=== PATIENT | male | born 1980 | race Caucasian/White ===

== ENCOUNTER 2022-03-04 17:19 | Observation (INO) ==
--- NOTE | 2022-03-04 17:50 | Emergency Department Note ---
History of Present Illness General Chief complaint: Penis Pain Stated complaint: PENIS PAIN Time Seen by Provider: 03/04/22 17:40 History of Present Illness Maximum Pain Intensity: 10 This is an otherwise healthy 42-year-old male that presents to the emergency department via private vehicle accompanied by female with complaints of "penis pain". The patient notes that for the past month or so he felt a few small bumps to the foreskin of the penis. He notes that he is uncircumcised. He has been trying to practice good hygiene and keep the area cleansed. He then notes that over the past few days, starting on Saturday he has been unable to retract the foreskin. He is concerned that he may have a phimosis. The patient denies ever having this previously. Patient denies any known history of diabetes. Patient denies any fevers or chills. He denies any trouble urinating. No known trauma or injury. Patient does note some referred discomfort to the suprapubic region. Home Medications Medication Instructions Recorded Confirmed Type None (Patient States No Home Meds) #0 01/18/08 History Allergies Allergy/AdvReac Type Severity Reaction Status Date / Time No Known Allergies Allergy Unknown Verified 01/18/08 20:15 Past Med/Surg History Medical History No pertinent past medical history Surgical History History of major orthopedic surgery Left clavicle surgery Social History Smoking Status: Current every day smoker Tobacco Type: Cigarettes Cigarettes Per Day: 1/2 PPD; Second Hand Exposure: No; Do You Dip or Chew Tobacco: No; Tobacco Cessation Education Requested by Patient: No Hx Alcohol Use: Yes Alcohol type: beer Hx Substance Use: Yes Last Used Substance: Days (ago) Substance Use Type Other:: medical marijuana card Preferred Language: Hungarian Communication Ability: Effective Music Educator Required: No Beliefs That Will Affect Care: None Current Living Situation: Family Current Living Situation Comment: lives in house with and 3 children Other Information That Helps Us Care for You: No Feels Safe at Home: Yes Safety Concerns: Feels Safe At This Time Assistive Devices: Glasses Review of Systems A total of 10 systems reviewed and were otherwise negative Physical Exam Vital Signs Vital Signs - 24 hr 03/04/22 17:21 03/04/22 22:05 Temperature 36.6 C Temperature Source Temporal Artery Scan Pulse Rate 74 Pulse Rate [Finger] 87 Respiratory Rate 16 19 Respiratory Effort / Characteristics Non-Labored Blood Pressure 148/85 H Blood Pressure [Right Arm] 138/81 Blood Pressure Mean 106 Blood Pressure Mean [Right Arm] 100 Pulse Oximetry 94 98 Oxygen Delivery Method Room Air Room Air Sepsis Recent Fever Within 48 Hours No Sepsis New/Unexplained Change in Mental Status N/A Sepsis Action Taken by Nursing No Action Required VITAL SIGNS - Vital signs and nursing notes were reviewed. Stable and afebrile. GENERAL -42-year-old male appearing his stated age who is in no acute distress. Communicates well with provider and answers questions appropriately. SKIN - Without rashes. No meningeal or petechial rash. Please refer to the portion of this examination regarding genitalia. NECK - No nuchal rigidity. LUNGS - Chest wall symmetric without accessory muscle use, intercostals retractions, or central cyanosis. Normal vesicular breath sounds CTA B/L. No wheezes, rales, or rhonchi appreciated. CARDIAC - RRR with S1/S2. No murmur, rubs, or gallops appreciated. ABDOMEN - Abdominal contour normal without pulsations or visible masses. BS normoactive all four quadrants. No tenderness, palpable masses, hepatosplenomegaly, or ascites noted. : Consent was obtained. Genitourinary examination performed. There is what appears to be irritation and edema characterized by erythema and some mild whit nella drainage/discharge present to the glans region. There is phimosis noted as the foreskin is unable to be retracted. No lacerations. No crepitus. PSYCH - A&O, and cooperates fully with examiner. Pt is very pleasant and interacts well with examiner. Course Administered Medications Insulin Aspart (Insulin Aspart Per Unit) 0 units SC ACHS DULCE Stop: 04/03/22 23:46 Last Admin: 03/05/22 00:46 Dose: 7 units Documented by: [id number] Cosigned by: [id number] Oxycodone HCl (Oxycodone Hcl Ir 5 Mg Tab (Immediate Release)) 5 - 10 mg PO QID PRN PRN Reason: Pain Stop: 03/19/22 01:31 Last Admin: 03/05/22 01:44 Dose: 10 mg Documented by: [id number] Discontinued Medications Sodium Chloride (Nss 1000ml) 1,000 mls @ 999 mls/hr IV .Q1H1M DULCE Stop: 03/04/22 21:00 Last Infusion: 03/04/22 21:20 Dose: 0 mls/hr Documented by: [id number] Admin: 03/04/22 20:19 Dose: 999 mls/hr Documented by: [id number] Cefepime HCl (Maxipime) 2,000 mg in 20 mls @ 5 mls/min IV NOW STA; Protocol Stop: 03/04/22 21:35 Last Admin: 03/04/22 21:49 Dose: 5 mls/min Documented by: [id number] Insulin Glargine (Insulin Glargine Solostar 100 Units/Ml 3 Ml Pen) 10 units SC NOW STA Stop: 03/04/22 21:24 Last Admin: 03/04/22 21:49 Dose: 10 units Documented by: [id number] Cosigned by: [id number] Insulin Glargine (Insulin Glargine Solostar 100 Units/Ml 3 Ml Pen) 10 units SC NOW STA Stop: 03/05/22 00:19 Last Admin: 03/05/22 00:45 Dose: 10 units Documented by: [id number] Cosigned by: [id number] Ioversol (Optiray 320 125ml) 120 ml IV ONCE ONE Stop: 03/04/22 20:13 Last Admin: 03/04/22 20:12 Dose: 120 ml Documented by: [id number] Ketorolac Tromethamine (Ketorolac Tromethamine 15 Mg/Ml Vial) 15 mg IV NOW ONE Stop: 03/04/22 22:22 Last Admin: 03/05/22 00:44 Dose: 15 mg Documented by: [id number] Miconazole Nitrate (Miconazole Nitrate 2% Cr 30 Gm Tube) 1 appln EXT NOW STA Stop: 03/04/22 21:18 Last Admin: 03/04/22 21:49 Dose: 1 appln Documented by: [id number] Morphine Sulfate (Morphine Sulfate 4 Mg/Ml 1 Ml Carp\\Vial) 4 mg IV NOW STA Stop: 03/04/22 20:46 Last Admin: 03/04/22 20:53 Dose: 4 mg Documented by: [id number] Ondansetron HCl (Ondansetron Inj 2 Mg/Ml 2 Ml Vial) 4 mg IV NOW STA Stop: 03/04/22 20:46 Last Admin: 03/04/22 20:53 Dose: 4 mg Documented by: [id number] Oxycodone HCl (Oxycodone Hcl Ir 5 Mg Tab (Immediate Release)) 5 mg PO NOW STA Stop: 03/04/22 17:57 Last Admin: 03/04/22 18:02 Dose: 5 mg Documented by: [id number] Medical Decision Making Laboratory Data Result diagrams: 03/04/22 18:30 03/04/22 18:30 Lab Results 03/04/22 03/04/22 03/04/22 Range/Units 18:00 18:30 18:30 WBC 9.04 (4.8-10.8) K/uL RBC 5.45 (4.7-6.1) M/uL Hgb 16.0 (14.0-18.0) g/dL Hct 49.0 (42-52) % MCV 89.9 (80-100) fL MCH 29.4 (25-34) pg MCHC 32.7 (32-36) g/dL RDW Std Deviation 45.3 (36.4-46.3) fL RDW Coeff of Rosie 13.9 (11.5-14.5) % Plt Count 211 (130-400) K/uL MPV 11.4 H (7.4-10.4) fL Immature Gran % (Auto) 0.2 % Neut % (Auto) 68.5 % Lymph % (Auto) 24.9 % [place] % (Auto) 4.3 % Eos % (Auto) 1.9 % Baso % (Auto) 0.2 % Neut # (Auto) 6.19 (1.4-6.5) K/uL Lymph # (Auto) 2.25 (1.2-3.4) K/uL [place] # (Auto) 0.39 (0.11-0.59) K/uL Eos # (Auto) 0.17 (0-0.5) K/uL Baso # (Auto) 0.02 (0-0.2) K/uL Immature Gran # (Auto) 0.02 (0.00-0.02) K/uL Sodium 131 L (136-145) mmol/L Potassium 4.4 (3.5-5.1) mmol/L Chloride 95 L (98-107) mmol/L Carbon Dioxide 30 (21-32) mmol/L Anion Gap 6 (3-11) BUN 11 (6-23) mg/dl Creatinine 1.09 (0.6-1.4) mg/dl Est Cr Clr Drug Dosing 139.5 ml/min Est GFR ( Amer) 95.2 ml/min Est GFR (Non-Af Amer) 82.1 ml/min BUN/Creatinine Ratio 10.1 (10-20) Glucose 372 H* (70-99(Fasting)) mg/dl POC Glucose (70-99) mg/dl Calcium 8.9 (8.5-10.1) mg/dl Magnesium (1.7-2.4) mg/dl Total Bilirubin 0.6 (0.2-1.0) mg/dl AST 40 H (13-39) U/L ALT 52 (7-52) U/L Alkaline Phosphatase 79 (34-104) U/L Total Protein 6.8 (6.0-8.3) gm/dl Albumin 3.8 (3.4-5.0) gm/dl Globulin 3.0 (2.5-4.0) gm/dl Albumin/Globulin Ratio 1.3 (0.9-2) TSH (0.300-4.500) uIu/ml Urine Color Dark Yellow Urine Appearance Cloudy A (Clear) Urine pH 6.0 (4.5-7.5) Ur Specific [place] 1.032 H (1.000-1.030) Urine Protein Negative (Negative) Urine Glucose (UA) 3+ H (Negative) Urine Ketones Trace H (Negative) Urine Blood Trace H (Negative) Urine Nitrite Negative (Negative) Urine Bilirubin Negative (Negative) Urine Urobilinogen Negative (Negative) Ur Leukocyte Esterase 2+ H (Negative) Urine WBC (Auto) >30 H (0-5) /hpf Urine RBC (Auto) 0-4 (0-4) /hpf U Hyaline Cast (Auto) 10-30 H (0-5) /lpf U Epithel Cells (Auto) >30 H (0-5) /lpf Urine Bacteria (Auto) 2+ H (Negative) Urine Yeast Budding A (None Prsent) SARS-CoV-2, RNA, NAAT (NEGATIVE) 03/04/22 03/04/22 03/04/22 Range/Units 18:30 18:30 21:14 WBC (4.8-10.8) K/uL RBC (4.7-6.1) M/uL Hgb (14.0-18.0) g/dL Hct (42-52) % MCV (80-100) fL MCH (25-34) pg MCHC (32-36) g/dL RDW Std Deviation (36.4-46.3) fL RDW Coeff of Rosie (11.5-14.5) % Plt Count (130-400) K/uL MPV (7.4-10.4) fL Immature Gran % (Auto) % Neut % (Auto) % Lymph % (Auto) % [place] % (Auto) % Eos % (Auto) % Baso % (Auto) % Neut # (Auto) (1.4-6.5) K/uL Lymph # (Auto) (1.2-3.4) K/uL [place] # (Auto) (0.11-0.59) K/uL Eos # (Auto) (0-0.5) K/uL Baso # (Auto) (0-0.2) K/uL Immature Gran # (Auto) (0.00-0.02) K/uL Sodium (136-145) mmol/L Potassium (3.5-5.1) mmol/L Chloride (98-107) mmol/L Carbon Dioxide (21-32) mmol/L Anion Gap (3-11) BUN (6-23) mg/dl Creatinine (0.6-1.4) mg/dl Est Cr Clr Drug Dosing ml/min Est GFR ( Amer) ml/min Est GFR (Non-Af Amer) ml/min BUN/Creatinine Ratio (10-20) Glucose (70-99(Fasting)) mg/dl POC Glucose 275 H (70-99) mg/dl Calcium (8.5-10.1) mg/dl Magnesium 1.8 (1.7-2.4) mg/dl Total Bilirubin (0.2-1.0) mg/dl AST (13-39) U/L ALT (7-52) U/L Alkaline Phosphatase (34-104) U/L Total Protein (6.0-8.3) gm/dl Albumin (3.4-5.0) gm/dl Globulin (2.5-4.0) gm/dl Albumin/Globulin Ratio (0.9-2) TSH 2.907 (0.300-4.500) uIu/ml Urine Color Urine Appearance (Clear) Urine pH (4.5-7.5) Ur Specific [place] (1.000-1.030) Urine Protein (Negative) Urine Glucose (UA) (Negative) Urine Ketones (Negative) Urine Blood (Negative) Urine Nitrite (Negative) Urine Bilirubin (Negative) Urine Urobilinogen (Negative) Ur Leukocyte Esterase (Negative) Urine WBC (Auto) (0-5) /hpf Urine RBC (Auto) (0-4) /hpf U Hyaline Cast (Auto) (0-5) /lpf U Epithel Cells (Auto) (0-5) /lpf Urine Bacteria (Auto) (Negative) Urine Yeast (None Prsent) SARS-CoV-2, RNA, NAAT (NEGATIVE) 03/04/22 Range/Units 21:16 WBC (4.8-10.8) K/uL RBC (4.7-6.1) M/uL Hgb (14.0-18.0) g/dL Hct (42-52) % MCV (80-100) fL MCH (25-34) pg MCHC (32-36) g/dL RDW Std Deviation (36.4-46.3) fL RDW Coeff of Rosie (11.5-14.5) % Plt Count (130-400) K/uL MPV (7.4-10.4) fL Immature Gran % (Auto) % Neut % (Auto) % Lymph % (Auto) % [place] % (Auto) % Eos % (Auto) % Baso % (Auto) % Neut # (Auto) (1.4-6.5) K/uL Lymph # (Auto) (1.2-3.4) K/uL [place] # (Auto) (0.11-0.59) K/uL Eos # (Auto) (0-0.5) K/uL Baso # (Auto) (0-0.2) K/uL Immature Gran # (Auto) (0.00-0.02) K/uL Sodium (136-145) mmol/L Potassium (3.5-5.1) mmol/L Chloride (98-107) mmol/L Carbon Dioxide (21-32) mmol/L Anion Gap (3-11) BUN (6-23) mg/dl Creatinine (0.6-1.4) mg/dl Est Cr Clr Drug Dosing ml/min Est GFR ( Amer) ml/min Est GFR (Non-Af Amer) ml/min BUN/Creatinine Ratio (10-20) Glucose (70-99(Fasting)) mg/dl POC Glucose (70-99) mg/dl Calcium (8.5-10.1) mg/dl Magnesium (1.7-2.4) mg/dl Total Bilirubin (0.2-1.0) mg/dl AST (13-39) U/L ALT (7-52) U/L Alkaline Phosphatase (34-104) U/L Total Protein (6.0-8.3) gm/dl Albumin (3.4-5.0) gm/dl Globulin (2.5-4.0) gm/dl Albumin/Globulin Ratio (0.9-2) TSH (0.300-4.500) uIu/ml Urine Color Urine Appearance (Clear) Urine pH (4.5-7.5) Ur Specific [place] (1.000-1.030) Urine Protein (Negative) Urine Glucose (UA) (Negative) Urine Ketones (Negative) Urine Blood (Negative) Urine Nitrite (Negative) Urine Bilirubin (Negative) Urine Urobilinogen (Negative) Ur Leukocyte Esterase (Negative) Urine WBC (Auto) (0-5) /hpf Urine RBC (Auto) (0-4) /hpf U Hyaline Cast (Auto) (0-5) /lpf U Epithel Cells (Auto) (0-5) /lpf Urine Bacteria (Auto) (Negative) Urine Yeast (None Prsent) SARS-CoV-2, RNA, NAAT NEGATIVE (NEGATIVE) Imaging Data Radiologist's Impression: CT ABDOMEN & PELVIS With Contrast: Prominent inguinal lymph nodes. Mild inflammation of the subcutaneous fat adjacent to the penis. If there is continued clinical concern, an ultrasound of the penis may be of benefit for further evaluation. Hepatic steatosis. Status post cholecystectomy. The common bile duct is normal. There is moderate atrophy of the pancreas. No evidence of hydronephrosis or urinary calculi. There is a 16 mm left adrenal nodule. The appendix is normal. Diverticulosis of the descending and sigmoid colon. Comparison made to prior CT scan of abdomen pelvis from January 18, 2018. Radiologist: Melissa Echols MD Study ready at 20:20 and initial results transmitted at 20:37 MDM Narrative Patient was seen and evaluated as above in room D02. Review was performed of nursing notes and vital signs. After obtaining a thorough history and physical examination the above work up was performed. Patient presents to us today for evaluation of penile pain. He clinically appears well and nontoxic. Clinical examination is concerning for that of balanitis with phimosis. He is still able to urinate. No evidence of necrotic tissue. No evidence of Arina's gangrene clinically. Options of care were discussed with the patient. Urinalysis was obtained. I discussed the presentation with the on-call urologist, Dr. Block. At this time we agree by proceeding with further work-up. IV access was established. Labs were drawn. CT imaging was obtained of the abdomen and pelvis. Labs reveal no leukocytosis or concerning anemia. Mild hyponatremia 131. There is no kidney or liver failure. Glucose significantly elevated at 372. Mild AST elevation of 40. Urinalysis although likely a contaminated sample does reveal evidence of potential UTI. Budding yeast are noted however this could also be contaminated as the urethral meatus is currently in contact with the foreskin. CT imaging as above. Mild inflammation of the subcutaneous fat adjacent to the penis. Patient does not have any evidence of necrosis clinically. I then discussed this again with urology and indicated that patient will be admitted to the [facility] service for further evaluation and management of the new onset diabetes. I suspect this is the cause of the balanitis. The urology service will see the patient in the morning. We agree up with antibiotics at the present time as well as antifungal. I did order miconazole cream for the patient and the medicine service also ordered IV antibiotics. Case discussed with the medicine service. Please refer to further documentation regarding his stay. Patient amenable to plan of care. While here the patient was also medicated with IV analgesics and antiemetics. This was for the pain the patient was experiencing to the penile region. It is important note that there is no evidence of te sticular torsion on my examination of the patient. GCS: 15 In the evaluation and treatment of this patient the following differential diagnoses were entertained: Balanitis, paraphimosis, phimosis, Arina's gangrene, cellulitis, acute abdomen, UTI, among others. Impression & Plan Balanitis, Penile pain, Hyperglycemia Discharge Plan Visit Data Chief Complaint: Penis Pain Stated Complaint: PENIS PAIN ED Provider: Mitchell Avila ED Midlevel Provider: Cas Denney Discharge Problem: Balanitis, Penile pain, Hyperglycemia Patient Disposition: Admitted As Inpatient Condition: Good Discharge Instructions Interventions: ED Discharge Assessment Last Done: 03/04/22 23:29
[2022-03-04] MEDS ORDERED: oxyCODONE HCL IR 5 MG TAB (IMMEDIATE RELEASE) PO STA (17:56)
[2022-03-04 18:14] LABS: Appearance Urine Cloudy (Clear); Bacteria Urine Automated 2+ (Negative); Bilirubin Urine Negative (Negative); Blood Urine Trace (Negative); Color Urine Dark Yellow; Epithelial Cell Urine Auto >30 /lpf (0-5); Glucose Urine UA 3+ (Negative); Ketones Urine Trace (Negative); Leukocyte Esterase Urine 2+ (Negative); Nitrite Urine Negative (Negative); Protein Urine Negative (Negative); RBC Urine Automated 0-4 /hpf (0-4); Specific Gravity Urine 1.032 (1.000-1.030); Urobilinogen Urine Negative (Negative); WBC Urine Automated >30 /hpf (0-5)
[2022-03-04 18:58] LABS: Lymphocytes % (auto) 24.9 %; Mean Corpuscular Hemoglobin 29.4 pg (25-34); Mean Corpuscular Hgb Conc 32.7 g/dL (32-36); Mean Corpuscular Volume 89.9 fL (80-100); Mean Platelet Volume 11.4 fL (7.4-10.4); Neutrophils % (auto) 68.5 %; Platelet Count 211 K/uL (130-400); RDW Coefficient of Variation 13.9 % (11.5-14.5); RDW Standard Deviation 45.3 fL (36.4-46.3); Red Blood Count 5.45 M/uL (4.7-6.1); White Blood Count 9.04 K/uL (4.8-10.8)
[2022-03-04 18:59] LABS: Basophils # (auto) 0.02 K/uL (0-0.2); Basophils % (auto) 0.2 %; Eosinophils # (auto) 0.17 K/uL (0-0.5); Eosinophils % (auto) 1.9 %; Immature Granulocytes # (auto) 0.02 K/uL (0.00-0.02); Immature Granulocytes % (auto) 0.2 %; Lymphocytes # (auto) 2.25 K/uL (1.2-3.4); Monocytes # (auto) 0.39 K/uL (0.11-0.59); Monocytes % (auto) 4.3 %; Neutrophils # (auto) 6.19 K/uL (1.4-6.5)
[2022-03-04 19:29] LABS: Albumin Globulin Ratio 1.3 (0.9-2); Albumin Level 3.8 gm/dl (3.4-5.0); BUN Creatinine Ratio 10.1 (10-20); Bilirubin,Total 0.6 mg/dl (0.2-1.0); Calcium 8.9 mg/dl (8.5-10.1); Creatinine Clr Calc Pharmacy 139.5 ml/min; Est GFR (African American) 95.2 ml/min; Est GFR (Non-African American) 82.1 ml/min; Potassium 4.4 mmol/L (3.5-5.1); Total Protein 6.8 gm/dl (6.0-8.3)
[2022-03-04] MEDS ORDERED: SODIUM CHLORIDE 0.9% 1000ML 1,000 ML IV SCH (20:00)
[2022-03-04] MEDS ORDERED: OPTIRAY 320 125ml IV ONE (20:12)
[2022-03-04] MEDS ORDERED: ONDANSETRON INJ 2 MG/ML 2 ML VIAL IV STA (20:45)
[2022-03-04] MEDS ORDERED: MoRPHine SULFATE 4 MG/ML 1 ML CARP\\VIAL IV STA (20:45)
--- NOTE | 2022-03-04 21:06 | Emergency Department Note ---
ED Visit Note I was consulted by the Advanced Practice Provider. I saw the patient personally and performed a substantive portion of the visit. This includes aspects of the HPI, MDM, diagnostic interpretations, and disposition/plan. The patient has balanitis. It sounds as if things started fungal and now there may be a bacterial superinfection. He is quite hyperglycemic. He is very likely dehydrated. Given the circumstances, hospitalization was felt warranted. .
[2022-03-04] MEDS ORDERED: MICONAZOLE NITRATE 2% CR 30 GM TUBE EXT STA (21:17)
[2022-03-04] MEDS ORDERED: INSULIN GLARGINE SOLOSTAR 100 UNITS/ML 3 ML PEN SC STA (21:23)
[2022-03-04] MEDS ORDERED: CEFEPIME 2,000 MG/20 ML VIAL IV STA (21:32)
--- NOTE | 2022-03-04 22:06 | History & Physical Report ---
Date of Service March 04, 2022 Assessment & Plan (1) Complicated UTI (urinary tract infection): Plan: Complicated UTI Possible balanoposthitis No sepsis for now Hyperglycemia likely new diagnosis of DM2 Situational hypertension Adrenal nodule on initial CT read Ongoing tobacco abuse GMF Urine CS, Cefepime Urology consult Re: Possible balanoposthitis (ER provider already in touch with Dr. Gonsalves.) Basal insulin, ISS BG goal 1 10-1 40, carb count coverage, check hemoglobin A1c Diabetic education Follow official CT abdomen pelvis result for adrenal nodule and perform responding work-up/follow-up imaging as needed Nicotine patch as needed DVT prophylaxis. Lovenox subcu Full code Text document was generated using [employer] voice recognition software. It may contain grammatical or spelling errors. Kindly contact undersigned for clarification of any documentation item in question. History of Present Illness Chief Complaint: Dysuria, foreskin not retracting Primary Care Provider: Sal Colindres DO History obtained from patient and records. Medical history significant for ongoing tobacco abuse. Last confinement 2007 for abdominal pain nausea vomiting symptoms. Last month, patient noted problems with his penis foreskin. Possible phimosis after Google search as per patient. Last week, patient noted trouble retracting foreskin. Dysuria symptoms without fever or chills. No chest pain, no SOB. Patient brought to the ER by . Medical History as above Surgical History : Clavicle surgery Family History : DM Personal/Social history : Half pack daily, no EtOH intake, disabled Allergies Allergy/AdvReac Type Severity Reaction Status Date / Time No Known Allergies Allergy Unknown Verified 01/18/08 20:15 Home Medications Medication Instructions Recorded Confirmed Type None (Patient States No Home Meds) #0 01/18/08 History Past Med/Surg History Medical History No pertinent past medical history Surgical History History of major orthopedic surgery Left clavicle surgery Social History Smoking Status: Current every day smoker Tobacco Type: Cigarettes Cigarettes Per Day: 1/2 PPD; Second Hand Exposure: No; Do You Dip or Chew Tobacco: No; Tobacco Cessation Education Requested by Patient: No Hx Alcohol Use: Yes Alcohol type: beer Hx Substance Use: Yes Last Used Substance: Days (ago) Substance Use Type Other:: medical marijuana card Preferred Language: Polish Communication Ability: Effective 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 Beliefs That Will Affect Care: None Current Living Situation: Family Current Living Situation Comment: lives in house with and 3 children Other Information That Helps Us Care for You: No Feels Safe at Home: Yes Safety Concerns: Feels Safe At This Time Assistive Devices: Glasses Review of Systems Review of Systems: As per HPI, all other systems reviewed and negative Physical Exam 2 Physical Exam: GENERAL: Comfortable, morbidly obese, no respiratory distress SKIN: Normal color, warm HEENT: [place] palpebral conjunctivae, no ptosis, moist buccal mucosa NECK : Supple, short neck, no tenderness CHEST : CTA, no tenderness HEART : RRR, no obvious murmurs ABDOMEN: Some distention, nontender : Tender, swollen penis unretractable foreskin EXTREMITIES : LE swelling, no LE tenderness, no other conspicuous deformities noted NEUROLOGIC : Coherent, no facial asymmetry, no other gross focality Results & Data Results & Data ([facility]) Vital Signs (Past 12 Hours) Vital Signs Temp Pulse Pulse Resp BP BP Pulse Ox 03/04/22 22:05 87 19 138/81 98 03/04/22 17:21 36.6 C 74 16 148/85 H 94 Laboratory Results Laboratory Results WBC 9.04 K/uL (4.8-10.8) 03/04/22 18:30 RBC 5.45 M/uL (4.7-6.1) 03/04/22 18:30 Hgb 16.0 g/dL (14.0-18.0) 03/04/22 18:30 Hct 49.0 % (42-52) 03/04/22 18:30 MCV 89.9 fL (80-100) 03/04/22 18:30 MCH 29.4 pg (25-34) 03/04/22 18:30 MCHC 32.7 g/dL (32-36) 03/04/22 18:30 RDW Std Deviation 45.3 fL (36.4-46.3) 03/04/22 18:30 RDW Coeff of Rosie 13.9 % (11.5-14.5) 03/04/22 18:30 Plt Count 211 K/uL (130-400) 03/04/22 18:30 MPV 11.4 fL (7.4-10.4) H 03/04/22 18:30 Immature Gran % (Auto) 0.2 % 03/04/22 18:30 Neut % (Auto) 68.5 % 03/04/22 18:30 Lymph % (Auto) 24.9 % 03/04/22 18:30 [place] % (Auto) 4.3 % 03/04/22 18:30 Eos % (Auto) 1.9 % 03/04/22 18:30 Baso % (Auto) 0.2 % 03/04/22 18:30 Neut # (Auto) 6.19 K/uL (1.4-6.5) 03/04/22 18:30 Lymph # (Auto) 2.25 K/uL (1.2-3.4) 03/04/22 18:30 [place] # (Auto) 0.39 K/uL (0.11-0.59) 03/04/22 18:30 Eos # (Auto) 0.17 K/uL (0-0.5) 03/04/22 18:30 Baso # (Auto) 0.02 K/uL (0-0.2) 03/04/22 18:30 Immature Gran # (Auto) 0.02 K/uL (0.00-0.02) 03/04/22 18:30 Sodium 131 mmol/L (136-145) L 03/04/22 18:30 Potassium 4.4 mmol/L (3.5-5.1) 03/04/22 18:30 Chloride 95 mmol/L (98-107) L 03/04/22 18:30 Carbon Dioxide 30 mmol/L (21-32) 03/04/22 18:30 Anion Gap 6 (3-11) 03/04/22 18:30 BUN 11 mg/dl (6-23) 03/04/22 18:30 Creatinine 1.09 mg/dl (0.6-1.4) 03/04/22 18:30 Est Cr Clr Drug Dosing 139.5 ml/min 03/04/22 18:30 Est GFR ( Amer) 95.2 ml/min 03/04/22 18:30 Est GFR (Non-Af Amer) 82.1 ml/min 03/04/22 18:30 BUN/Creatinine Ratio 10.1 (10-20) 03/04/22 18:30 Glucose 372 mg/dl (70-99(Fasting)) H* 03/04/22 18:30 POC Glucose 275 mg/dl (70-99) H 03/04/22 21:14 Calcium 8.9 mg/dl (8.5-10.1) 03/04/22 18:30 Magnesium 1.8 mg/dl (1.7-2.4) 03/04/22 18:30 Total Bilirubin 0.6 mg/dl (0.2-1.0) 03/04/22 18:30 AST 40 U/L (13-39) H 03/04/22 18:30 ALT 52 U/L (7-52) 03/04/22 18:30 Alkaline Phosphatase 79 U/L (34-104) 03/04/22 18:30 Total Protein 6.8 gm/dl (6.0-8.3) 03/04/22 18:30 Albumin 3.8 gm/dl (3.4-5.0) 03/04/22 18:30 Globulin 3.0 gm/dl (2.5-4.0) 03/04/22 18:30 Albumin/Globulin Ratio 1.3 (0.9-2) 03/04/22 18:30 Urine Color Dark Yellow 03/04/22 18:00 Urine Appearance Cloudy (Clear) A 03/04/22 18:00 Urine pH 6.0 (4.5-7.5) 03/04/22 18:00 Ur Specific [place] 1.032 (1.000-1.030) H 03/04/22 18:00 Urine Protein Negative (Negative) 03/04/22 18:00 Urine Glucose (UA) 3+ (Negative) H 03/04/22 18:00 Urine Ketones Trace (Negative) H 03/04/22 18:00 Urine Blood Trace (Negative) H 03/04/22 18:00 Urine Nitrite Negative (Negative) 03/04/22 18:00 Urine Bilirubin Negative (Negative) 03/04/22 18:00 Urine Urobilinogen Negative (Negative) 03/04/22 18:00 Ur Leukocyte Esterase 2+ (Negative) H 03/04/22 18:00 Urine WBC (Auto) >30 /hpf (0-5) H 03/04/22 18:00 Urine RBC (Auto) 0-4 /hpf (0-4) 03/04/22 18:00 U Hyaline Cast (Auto) 10-30 /lpf (0-5) H 03/04/22 18:00 U Epithel Cells (Auto) >30 /lpf (0-5) H 03/04/22 18:00 Urine Bacteria (Auto) 2+ (Negative) H 03/04/22 18:00 Urine Yeast Budding (None Prsent) A 03/04/22 18:00 SARS-CoV-2, RNA, NAAT NEGATIVE (NEGATIVE) 03/04/22 21:[address] abdomen pelvis initial read: Prominent inguinal lymph nodes. Mild inflammation of the subcutaneous fat adjacent to the penis. If there is continued clinical concern, an ultrasound of the penis maybe of benefit for further evaluation. Hepatic steatosis. Status post cholecystectomy. The common bile duct is normal. There is moderate atrophyof the pancreas. No evidence of hydronephrosis or urinarycalculi. There is a 16 mm left adrenal nodule. The appendix is normal. Diverticulosis of the descending and sigmoid colon. Comparison made to prior CT scan of abdomen pelvis [id number]
[2022-03-04] MEDS ORDERED: KETOROLAC TROMETHAMINE 15 MG/ML VIAL IV ONE (22:21)
[2022-03-04] MEDS ORDERED: PROMETHAZINE HCL 12.5 MG in SODIUM CHLORIDE 0.9% 50 ML IV PRN (23:47)
[2022-03-04] MEDS ORDERED: GLUCOSE 40% GEL 15 GM TUBE PO PRN (23:47)
[2022-03-04] MEDS ORDERED: DEXTROSE 50% 50 ML SYRINGE IV PRN (23:47)
[2022-03-04] MEDS ORDERED: CARBOHYDRATES FOR HYPOGLYCEMIA PO PRN (23:47)
[2022-03-04] MEDS ORDERED: IBUPROFEN 200 MG TAB PO PRN (23:47)
[2022-03-04] MEDS ORDERED: GLUCOSE 10 TABS/TUBE PO PRN (23:47)
[2022-03-04] MEDS ORDERED: ACETAMINOPHEN 325 MG TAB PO PRN (23:47)
[2022-03-04] MEDS ORDERED: KETOROLAC TROMETHAMINE 15 MG/ML VIAL IV PRN (23:47)
[2022-03-04] MEDS ORDERED: GLUCAGON FOR INJ 1 MG VIAL SQ PRN (23:47)
[2022-03-05] MEDS ORDERED: INSULIN GLARGINE SOLOSTAR 100 UNITS/ML 3 ML PEN SC STA (00:18)
[2022-03-05] MEDS: INSULIN ASPART PER UNIT SC SCH ×3 (00:46→12:59)
[2022-03-05] MEDS: oxyCODONE HCL IR 5 MG TAB (IMMEDIATE RELEASE) PO PRN ×2 (01:44→07:47)
[2022-03-05] MEDS: CEFEPIME 2,000 MG in SYRINGE 0 ML IV SCH ×2 (05:09→14:03)
[2022-03-05 07:59] LABS: Estimated Average Glucose 266 mg/dl; Hemoglobin A1C 10.9 % (4.5-5.6)
--- NOTE | 2022-03-05 08:19 | CT Scan Report ---
CT abd pelvis IV con only CLINICAL HISTORY: pelvic pain/penis pain into abdomen TECHNIQUE: Helical axial images of the abdomen and pelvis were obtained and displayed. Automated dose lowering techniques and/or adjustment according to patient size were utilized for this exam. This e xam was performed with intravenous contrast. CT DOSE: 2283.02 mGy.cm COMPARISON: Comparison is made to CT abdomen 01/19/2008 FINDINGS: Lower chest: No acute abnormality Liver: Hepatic steatosis is noted. Gallbladder and biliary tree: Patient is status post cholecystectomy. No intra- or extrahepatic bilia ry ductal dilation. Pancreas: Unremarkable, no focal lesions. Spleen: Unremarkable. Adrenals: A left renal nodule is seen measuring 17 mm. Kidneys and ureters: Lobular contour of the right kidney is noted. Bladder: Unremarkable. Reproductive organs: Unremarkable. Bowel: Diverticulosis is seen without evidence of diverticulitis. The appendix is normal. Lymph nodes Retroperitoneal: Unremarkable. Mesenteric: Unremarkable. Pelvic: Unremarkable. Peritoneum: Normal. Vessels: Unremarkable. Abdominal wall: There is a small amount of subcutaneous fat stranding about the proximal portion of t he penile shaft. Bones: Degenerative changes in the visualized spine. IMPRESSION: 1. Soft tissue stranding about the subcutaneous tissues about the proximal penile shaft. No evidence of drainable fluid collection. Findings may represent trauma or infection/inflammation. 2. Hepatic steatosis. 3. 17 mm left adrenal nodule. It does not definitely represent an adenoma and has minimally enlarged from prior exam where it measured 13 mm. If not previously evaluated, nonemergent adrenal mass riki col CT or MRI can be performed. ACT 112: Negative or not required by law. Electronically signed by: Evan Mcneill M.D. 03/05/2022 8:17 AM
[2022-03-05] MEDS ORDERED: ENOXAPARIN INJ 40 MG/0.4 ML SYR SQ SCH (09:00)
[2022-03-05 09:13] LABS: Basophils # (auto) 0.02 K/uL (0-0.2); Basophils % (auto) 0.2 %; Eosinophils # (auto) 0.21 K/uL (0-0.5); Eosinophils % (auto) 2.5 %; Hematocrit (blood only) 46.7 % (42-52); Hemoglobin 15.3 g/dL (14.0-18.0); Immature Granulocytes # (auto) 0.01 K/uL (0.00-0.02); Immature Granulocytes % (auto) 0.1 %; Lymphocytes # (auto) 1.93 K/uL (1.2-3.4); Lymphocytes % (auto) 23.1 %; Mean Corpuscular Hemoglobin 29.9 pg (25-34); Mean Corpuscular Hgb Conc 32.8 g/dL (32-36); Mean Corpuscular Volume 91.2 fL (80-100); Mean Platelet Volume 11.2 fL (7.4-10.4); Monocytes # (auto) 0.37 K/uL (0.11-0.59); Monocytes % (auto) 4.4 %; Neutrophils # (auto) 5.81 K/uL (1.4-6.5); Neutrophils % (auto) 69.7 %; Platelet Count 207 K/uL (130-400); RDW Standard Deviation 46.7 fL (36.4-46.3); Red Blood Count 5.12 M/uL (4.7-6.1); White Blood Count 8.35 K/uL (4.8-10.8)
--- NOTE | 2022-03-05 09:23 | Urology Consultation ---
Date of Consultation March 05, 2022 Assessment & Plan (1) Penile pain: (2) Balanitis: (3) Complicated UTI (urinary tract infection): (4) Adrenal nodule: He should undergo further hormonal work-up the adrenal nodule and repeat CT with designated adrenal phasing. This can be done as an outpatient. At this point penile pain seems likely related to a balanitis. He is currently on systemic antibiotics and getting topical antifungals. He should co ntinue these for the time being and I would recommend discharging him on 1 to 2 weeks of topical antifungals. We also discussed general hygiene measures including retracting the foreskin daily and gently wash with soap and water then patting the area dry and replacing the foreskin. There are no fluid collections or indications for surgery at this point. In addition with his hyperglycemia I would worry about compromised wound healing. Ideally as his blood sugar control improves and his inflammation settles down with antibiotics/antifungals his symptoms will improve as well. If the phimosis does not improve as inflammation resolves, we could try some topical corticosteroids such as betamethasone. We briefly discussed that there may be a role for circumcision. With possible history of hypospadias, I would like to be able to further examine his urethral meatus prior to any surgery. Since he voids from at or near the tip of his penis, I doubt that a formal hypospadias repair will be necessary, but if this is the case he may need to see a reconstructive urologist. Urology will sign off for now. Please contact us with any questions or concerns. We will arrange outpatient follow-up to ensure symptoms are improving. History of Present Illness Reason for Consultation: Penile swelling/pain Attending Physician: Unique Sandhu MD History of Present Illness This is a 42-year-old male who presented to the emergency department on 03/04/2022. He was complaining of penile pain at that time, which gradually worsened over the course of a couple months. Over the last couple days it had acutely worsened and he is uncircumcised and had noted that he was progressively unable to retract the foreskin and unable to clean his glans. Although initially the plan was to treat empirically for balanitis, lab work in the ED was diagnostic for diabetes and he was subsequently admitted for evaluation and coordination of care. Urology was consulted for further evaluation of the penile swelling. At the bedside he reports that he has had gradually worsening pain. He denies any discharge or drainage. He denies any prior surgery on the penis. He is uncircumcised, which he reports was because his mother was told that they may need that tissue for other reconstructive surgery in the future. This would be consistent with hypospadias, although he does not recognize this diagnosis. He states that when he urinates, the urine comes from at or near the tip of the penis. He denies any fevers or chills. He denies any recent skin wounds that would be suggestive of Arina's gangrene. Review of his lab work was notable for no leukocytosis (WBC 8.35). His creatinine is normal at 1.09. He was markedly hyperglycemic with a glucose 372 in the emergency department, but it appears to be decreasing. Hemoglobin A1c was 10.9. Urinalysis was suspicious for contamination with significant epithelial cells, but also demonstrated yeast and bacteria as well as 2+ leukocyte esterase. In light of this he is currently being treated with cefepime. He had a CT scan of the abdomen and pelvis performed. I independently reviewed these images. He has 2 kidneys in orthotopic position. Both kidneys enhance symmetrically. There are no stones appreciated. There is no hydronephrosis. His bladder appears to be of normal size and is prostate also appears normal. There is no evidence of subcutaneous emphysema. There is some stranding of the soft tissue at the base of the penis, consistent with inflammation/irritation/possible infection, however there is no clear abscess. Radiology makes note of an adrenal nodule which has increased in size. Allergies Allergy/AdvReac Type Severity Reaction Status Date / Time No Known Allergies Allergy Unknown Verified 01/18/08 20:15 Home Medications Medication Instructions Recorded Confirmed Type None (Patient States No Home Meds) #0 01/18/08 History Patient History Medical History (Updated 03/05/22 @ 09:26 by Gianni Block MD) No pertinent past medical history Surgical History History of major orthopedic surgery Left clavicle surgery Social History Smoking Status: Current every day smoker Tobacco Type: Cigarettes Cigarettes Per Day: 1/2 PPD; Second Hand Exposure: No; Do You Dip or Chew Tobacco: No; Tobacco Cessation Education Requested by Patient: No Hx Alcohol Use: Yes Alcohol type: beer Hx Substance Use: Yes Last Used Substance: Days (ago) Substance Use Type Other:: medical marijuana card Preferred Language: [place] Communication Ability: Effective Vegetable Specker Required: No Beliefs That Will Affect Care: None Current Living Situation: Family Current Living Situation Comment: lives in house with and 3 children Other Information That Helps Us Care for You: No Feels Safe at Home: Yes Safety Concerns: Feels Safe At This Time Assistive Devices: Glasses Review of Systems Review of Systems: 14 point review of systems negative except for otherwise indicated. Genitourinary: + as per Subjective / HPI (Penile pain) Physical Exam Constitutional: well developed and well nourished; no acute distress Eyes: + anicteric sclerae; pupils not irregular Respiratory: normal respiratory effort; no respiratory distress, does not use accessory muscles and no cough Cardiovascular: well perfused Gastrointestinal (Abdomen): Inspection/Auscultation: abdomen normal to inspection; abdomen not distended Musculoskeletal: Extremities: extremities normal to inspection Skin: normal turgor; no rashes and no lesions Neurologic: moves all extremities and awake Psychiatric: Orientation: alert and oriented x 3 Genitourinary: Uncircumcised penis, unable to visualize the urethral meatus. There is some swelling of the foreskin with the phimotic ring. The upper portion of the glans can be visualized, but the ring cannot be totally retracted. This area is tender to palpation but there is no crepitus and no discharge. Bilateral testicles descended within the scrotal sac. Results & Data ([facility]) Vital Signs (Past 12 Hours) Vital Signs Temp Pulse Resp BP Pulse Ox 03/05/22 07:25 36.6 C 66 18 108/67 91 03/04/22 23:47 37.0 C 62 22 152/94 H 94 03/04/22 23:45 37.0 C 62 22 152/94 H 94 03/04/22 22:05 87 19 138/81 98 PG Care Time/CCT Total # of Minutes Spent Total Time Spent with Patient: Total time spent is greater than 50% in coordination of care (as documented) at patient's floor/unit and/or counseling patient: Coding Level of Care Code 94422 Inpt Consult Level 3 Diagnoses Penile pain N48.89 Balanitis N48.1 Complicated UTI (urinary tract infection) N39.0 Adrenal nodule E27.8
[2022-03-05 09:24] LABS: BUN Creatinine Ratio 12.3 (10-20); Calcium 8.4 mg/dl (8.5-10.1); Creatinine Clr Calc Pharmacy 145.7 ml/min; Est GFR (African American) 98.4 ml/min; Est GFR (Non-African American) 84.9 ml/min; Potassium 4.2 mmol/L (3.5-5.1)
--- NOTE | 2022-03-05 13:35 | Discharge Summary ---
Date of Service March 05, 2022 Admission HPI Per Admitting Provider History obtained from patient and records. Medical history significant for ongoing tobacco abuse. Last confinement 2007 for abdominal pain nausea vomiting symptoms. Last month, patient noted problems with his penis foreskin. Possible phimosis after Google search as per patient. Last week, patient noted trouble retracting foreskin. Dysuria symptoms without fever or chills. No chest pain, no SOB. Patient brought to the ER by . Medical History as above Surgical History : Clavicle surgery Family History : DM Personal/Social history : Half pack daily, no EtOH intake, disabled Admission Exam Per Admitting Provider GENERAL: Comfortable, morbidly obese, no respiratory distress SKIN: Normal color, warm HEENT: [place] palpebral conjunctivae, no ptosis, moist buccal mucosa NECK : Supple, short neck, no tenderness CHEST : CTA, no tenderness HEART : RRR, no obvious murmurs ABDOMEN: Some distention, nontender : Tender, swollen penis unretractable foreskin EXTREMITIES : LE swelling, no LE tenderness, no other conspicuous deformities noted NEUROLOGIC : Coherent, no facial asymmetry, no other gross focality Principal Diagnosis Balanitis Complicated UTI New onset diabetes Adrenal nodule Discharge Exam GENERAL: Alert and oriented x3. NAD, on RA. Morbidly obese. HEENT: No pallor, no icterus. Pupils equal, round and reactive to light. Oral mucosa moist. NECK: No JVD, no neck masses. HEART: S1 and S2 heard. Regular rate and rhythm. No murmur, no gallop. RESPIRATORY SYSTEM: Normal AP diameter. No accessory muscle use. No wheezing, no crackles. ABDOMEN: Soft, bowel sounds present, nontender, no distention. : Tender, swollen penis, unretractable foreskin. CENTRAL NERVOUS SYSTEM: No facial droop. Speech is clear. Obeys simple commands. Moves extremities. EXTREMITIES: No edema, no erythema seen. Discharge Data Allergies Allergy/AdvReac Type Severity Reaction Status Date / Time No Known Allergies Allergy Unknown Verified 01/18/08 20:15 Consultations 03/04/22 23:47 Consult Urology Routine Ordered Studies 03/04/22 18:23 CT abd pelvis IV con only Stat Hospital Course (1) Complicated UTI (urinary tract infection): 42-year-old morbidly obese gentleman who is newly diagnosed with diabetes [A1c 10.9] and this admission was also being managed for complicated UTI and balanitis. Urology evaluated. Agrees with topical antifungal and systemic antibiotic. Patient to maintain genitourinary hygiene per urologist recommendation. Patient being discharged on antifungal and antibiotic. Patient being discharged on oral antidiabetics, patient will need to closely follow-up with diabetic clinic/PCP as an outpatient for need for further evaluation/up titration of his diabetic medications. For left adrenal nodule 17 mm, urology evaluated, he will need follow-up with urology as an outpatient for further discussion/management regarding days including repeat CT scan with dedicated renal phase For his UTI, patient being discharged on cefdinir. Patient made aware that he needs to follow-up with his PCP in 3 to 5 days upon discharge to follow-up on his urine culture final results to make sure that he is on appropriate antibiotics. Patient being discharged to home with following instruction at the point of discharge: Follow-up with your primary care physician within a week time. Establish and follow-up with diabetic clinic closely as an outpatient. For your balanitis and UTI, you are being discharged on antifungal cream and oral antibiotic. Start your oral antibiotic, and antifungal cream from today evening. Complete the course. Follow-up with urology as an outpatient in 1 to 2 weeks. Maintain genitourinary hygiene per urology's recommendation. For your adrenal nodule, you will have to follow-up with your urology as an outpatient and have further discussion regarding management including repeat CT scan with designated as renal phasing. Follow-up with your primary care physician for your urine culture results in 3 to 5 days upon discharge to make sure that you are on appropriate antibiotics. For your new diagnosis of diabetes, your A1c was elevated at 10.9 while in hospital, you are being discharged on oral medication metformin and glipizide. Your medications will need to be uptitrated as outpatient. You will need close follow-up with diabetic clinic as an outpatient for ongoing management of your diabetes. Maintain healthy/diabetic diet and lifestyle modification per electro mechanical solar technician's instruction while in hospital. Get your blood work CBC and CMP done in a week time and have the results forwarded to your primary care physician. For your pain you can take [id number] Tylenol. You have been discharged on few days worth of Percocet, if worsening pain or ongoing need for strong pain medication, you will need evaluation by your primary care physician as an outpatient within a week time and have further prescription from the PCP office. Take medications as prescribed. Total Time Total Time Spent Total Time Spent (In Minutes): 45 Discharge Plan Discharge Items Patient Disposition: Home - Self-Care Reason For Visit: COMPLICATED UTI Discharge Diagnosis: Balanitis Complicated UTI New onset diabetes Adrenal nodule Condition on Discharge: Good Activity: Resume your previous activity Non-emergency contact: Primary Care Provider Call non-emergency contact if: you have any medication questions, your symptoms worsen, your pain is not controlled and your temperature is above 101 Follow-up/Referrals: Sal Colindres DO [Primary Care Provider] - Diet: Carb Consistent or DM2 and Heart Healthy Addtl Attending Provider Instructions: Follow-up with your primary care physician within a week time. Establish and follow-up with diabetic clinic closely as an outpatient. For your balanitis and UTI, you are being discharged on antifungal cream and oral antibiotic. Start your oral antibiotic, and antifungal cream from today evening. Complete the course. Follow-up with urology as an outpatient in 1 to 2 weeks. Maintain genitourinary hygiene per urology's recommendation. For your adrenal nodule, you will have to follow-up with your urology as an outpatient and have further discussion regarding management including repeat CT scan with designated as renal phasing. Follow-up with your primary care physician for your urine culture results in 3 to 5 days upon discharge to make sure that you are on appropriate antibiotics. For your new diagnosis of diabetes, your A1c was elevated at 10.9 while in hospital, you are being discharged on oral medication metformin and glipizide. Your medications will need to be uptitrated as outpatient. You will need close follow-up with diabetic clinic as an outpatient for ongoing management of your diabetes. Maintain healthy/diabetic diet and lifestyle modification per electro mechanical solar technician's instruction while in hospital. Get your blood work CBC and CMP done in a week time and have the results forwarded to your primary care physician. For your pain you can take [id number] Tylenol. You have been discharged on few days worth of Percocet, if worsening pain or ongoing need for strong pain medication, you will need evaluation by your primary care physician as an outpatient within a week time and have further prescription from the PCP office. Take medications as prescribed. Pending Studies at Discharge: Yes (Admitting urine culture final results.) Stand-Alone Forms: My [facility], Smoking Cessation Medications and DC Order Prescriptions: New acetaminophen 325 mg Tablet 650 mg PO Q8H PRN (Reason: fever or pain) Qty: 60 RF: 0 oxycodone-acetaminophen [Percocet] 5-325 mg tablet 1 tab PO Q12H PRN (Reason: pain (scale score 7-10)) 2 Days Qty: 4 RF: 0 clotrimazole 1 % cream 1 applic topical AMPM 14 Days Qty: 30 RF: 0 cefdinir 300 mg capsule 300 mg PO BID 7 Days Qty: 14 RF: 0 Probiotic 3 billion cell capsule 3,000 mmu cells PO DAILY 10 Days Qty: 10 RF: 0 metformin 500 mg tablet extended release 24hr 500 mg PO DAILY Qty: 30 RF: 0 glipizide 5 mg tablet 5 mg PO DAILY 30 Days Qty: 30 RF: 0 (DME) OneTouch Verio test strips Strip See Rx Instructions .Route Qty: 50 RF: 0 (DME) lancets [OneTouch Delica Lancets] 33 gauge misc See Rx Instructions .Route Qty: 100 RF: 0 Discontinued None (Patient States No Home Meds) . Qty: 0 RF: 0 Discharge Orders: Discharge Order (Routine); Ordered 03/05/22 Ordered By: Unique Sandhu Admission Data Admit Date/Time: 03/04/22 22:27 Attending Provider: Unique Sandhu Admit Provider: Terrance Silverman Primary Care Provider: Sal Colindres Other Providers: Gianni Block
[2022-03-05] MEDS ORDERED: INSULIN GLARGINE SOLOSTAR 100 UNITS/ML 3 ML PEN SC SCH ×2 (21:00)
== END 2022-03-05 15:03 | disposition home or self-care (01) ==
LOC: ED 17:19 → INTOOBSV 22:27 → SUATTDRO 22:27 → 3N 22:27